=== PATIENT | male | born 1955 | race Caucasian/White ===

== ENCOUNTER 2022-08-14 14:20 | Emergency (ER) | payer MEDICARE, OTHER, SELFPAY ==
--- NOTE | ~2022-08-14 | XR_ITS ---
EXAMINATION: XR FOOT, RIGHT CLINICAL INFORMATION: Fifth digit wound, rule out osteomyelitis. COMPARISON: None TECHNIQUE: AP, lateral, and oblique views of the right foot. An indicator arrow points to the fifth metatarsophalangeal joint. FINDINGS: There is no acute fracture or dislocation. No cortical erosive changes are seen. The remainder the digits are intact. The tarsal bones are normally aligned. Very small plantar and retrocalcaneal spurs are seen. Moderate to severe small vessel arteriosclerosis is seen. There is mild soft tissue swelling. XR/XR foot RT 2V IMPRESSION: 1. Mild soft tissue swelling without acute underlying osseous abnormality. No overt evidence for osteomyelitis. 2. Very small degenerative calcaneal spurs. 3. Moderate to severe small vessel arteriosclerosis.
--- NOTE | ~2022-08-14 | XR_ITS ---
EXAMINATION: XR CHEST CLINICAL INFORMATION: Cough and wheezing. COMPARISON: None TECHNIQUE: 2 views of the chest were obtained. FINDINGS: The lungs are clear. There are no pleural effusions. An atrial appendage clip is noted in place. Aortic valve prosthesis is noted in place. Multilevel sternotomy wires are intact. XR/XR chest 2V IMPRESSION: No acute cardiopulmonary process.
[2022-08-14 14:51] VITALS: BP 115/56; PULSE 61; RESP 20; TEMP 37.2; O2SAT 99; BMI 27.7
--- NOTE | 2022-08-14 14:53 | ED_ITS ---
HPI - URI/Sore Throat General Chief Complaint: Skin/Abscess/Foreign Body Stated Complaint: COVID+/R foot wound/Swollen calf Related Data Allergies Allergy/AdvReac Type Severity Reaction Status Date / Time No Known Allergies Allergy Verified 08/14/22 14:55 [facility] Social History Social History Advance Directives: No Advance Directives Information Provided: No Physical Exam Vital Signs: Vital Signs: Last Vital Signs Temp 99.0 F 08/14/22 14:51 Pulse 61 08/14/22 14:51 Resp 20 08/14/22 14:51 BP 115/56 L 08/14/22 14:51 Pulse Ox 99 08/14/22 14:51 O2 Del Method 08/14/22 14:51 BMI result Body Mass Index 27.7 Course Course Course Narrative: This is a rapid medical exam. Deferred additional HPI, ROS, PE to primary provider. 67-year-old male with history of coronary artery disease status post bypass, AFib on coumadin, HLD here with right foot wound (Thursday began) with redness/swelling/pain/warmth extending to the right calf. Will need labs. Patient also COVID positive cough, congestion, chest discomfort with coughing. Will check COVID screen, EKG, chest x-ray. Vital signs stable Low concern for DVT as patient has been compliant on Coumadin and last INR was 2.5 Discharge Plan Discharge Clinical Impression: COVID Patient Disposition: Elopement Discharge Date/Time: 08/14/22 23:09
--- NOTE | 2022-08-14 14:58 | ECG_ITS ---
Test Reason : cp Blood Pressure : / mmHG Vent. Rate : 062 BPM Atrial Rate : 062 BPM P-R Int : 176 ms QRS Dur : 078 ms QT Int : 406 ms P-R-T Axes : 068 012 029 degrees QTc Int : 412 ms Sinus rhythm with Premature atrial complexes Septal infarct , age undetermined Abnormal ECG No previous ECGs available Referred By: Lissett Stanton Electronically Signed By:MATT JORDAN MD
[2022-08-14 16:19] LABS: Lymphocytes Percent Auto 7.2 % (20-40); PLT CLUMP 1; SCAN SMEAR FLAG 1
[2022-08-14 16:21] LABS: Basophils Percent Auto 0.3 % (0-2); Eosinophils Absolute Auto 0.1 X10*3/uL (0.0-0.4); Eosinophils Percent Auto 0.8 % (0-4); Hematocrit 44.2 % (42.0-52.0); Imm Gran Abs Auto 0.03 X10*3/uL (0.00-0.03); Imm Gran Pct Auto 0.5 % (0.0-0.4); Lymphocytes Absolute Auto 0.5 X10*3/uL (1.2-4.9); MANUAL DIFF FLAG SCAN; Mean Corpuscular HGB Conc 33.9 g/dl (31.0-36.0); Mean Corpuscular Hemoglobin 32.5 pg (27.0-33.0); Mean Corpuscular Volume 95.9 fL (80.0-98.0); Mean Platelet Volume 10.5 fL (9.4-12.4); Monocytes Absolute Auto 0.6 X10*3/uL (0.1-1.2); Monocytes Percent Auto 8.8 % (2-11); Neutrophils Absolute Auto 5.3 x10*3/uL (2.0-8.3); Neutrophils Percent Auto 82.4 % (45-73); Red Blood Count 4.61 X10*6/uL (4.60-5.80); Red Cell Distribution Width 13.4 % (11.0-16.0)
[2022-08-14 16:25] LABS: INTERNATIONAL NORM RATIO 2.3 (0.9-1.1); Prothrombin Time 27.1 SEC (10.0-13.1)
[2022-08-14 16:29] LABS: Lactic Acid 0.8 mmol/L (0.5-2.0)
[2022-08-14 16:34] LABS: Alanine Aminotransferase 49 U/L (0-40); Albumin Level 4.2 g/dL (3.5-5.0); Alkaline Phosphatase 97 U/L (39-117); Anion Gap 12 (12-20); Aspartate Amino Transferase 39 U/L (5-37); Bilirubin Direct 0.5 mg/dL (0.0-0.5); Bilirubin Total 1.9 mg/dL (0.0-1.0); Blood Urea Nitrogen 9 mg/dL (9-16); Calcium 9.3 mg/dL (8.4-10.2); Carbon Dioxide 27 mmol/L (22-29); Chloride 105 mmol/L (96-108); Creatinine Clr Calc Pharmacy 91.5; Estimated Glomerular Filt Rate > 60; Glucose Random 121 mg/dL (60-115); Potassium 3.9 mmol/L (3.3-5.1); Sodium 140 mmol/L (135-145); Total Protein 6.8 g/dL (6.5-8.0)
[2022-08-14 16:39] LABS: Troponin-I High Sensitivity < 3.5 ng/L (<3.5-35.0)
[2022-08-14 16:42] LABS: COVID-19 Test Positive (Negative); IDNOW Serial# BCCEAD1C
[2022-08-14 16:43] LABS: Platelet Count 111 X10*3/uL (160-400); White Blood Count 6.4 X10*3/uL (4.8-10.8)
[2022-08-14 16:44] LABS: SLIDE REVIEW VERIFIED
== END 2022-08-14 23:09 | disposition left against medical advice (07) ==
PROVIDERS: Nurse Practitioner Family; Emergency Provider Emergency Medicine; PCP Nurse Practitioner Family
DX: U07.1 COVID-19 (principal); M79.671 Pain in right foot; R06.02 Shortness of breath; Z79.899 Other long term (current) drug therapy
CPT/HCPCS: 36415; 71046; 73620; 80048; 80076; 83605; 84484; 85025; 85610; 86140; 87040; 87635; 93005; 99283